=== PATIENT | female | born 1965 | race Caucasian/White ===

== ENCOUNTER 2016-12-15 19:46 | Emergency (ER) | payer OTHER ==
[~2016-12-15] VITALS: Ht 157.5 cm; Wt 52.9 kg
[~2016-12-15 19:46] MED LIST: FLEXERIL10 MG PO; INDOCIN25 MG PO; NAPROSYN500 MG PO; NORCO 7.5/321 TABLET PO; VALIUM5 MG PO; ZITHROMAX250 MG PO
[2016-12-15] MEDS ORDERED: METHADONE10 MG PO (20:31)
[2016-12-15 21:23] LABS: HEMATOCRIT 39.9 % (36.0-46.0); MCHC 35.1 G/DL (30.0-36.0); MCV 108.4 FL (83-99); MEAN PLAT.VOLUME 9.8 uM^3 (9.5-12.4); PLATELET COUNT 133 K/uL (156-360); RBC DIS.WIDTH-CV 13.6 % (11.8-14.6); RBC DIS.WIDTH-SD 55.5 % (39-53); RED BLOOD COUNT 3.68 M/uL (3.80-5.20)
[2016-12-15 21:32] LABS: CHLORIDE 96 mEq/L (99-109); POTASSIUM 4.8 mEq/L (3.7-5.4); SODIUM 136 mEq/L (136-147)
[2016-12-15 21:33] LABS: GLUCOSE 49 mg/dL (70-99)
[2016-12-15 21:35] LABS: ANION GAP 16 MEQ/L (2-14)
[2016-12-15 21:37] LABS: GFR ESTIMATE (CALCULATED) > 59 mL/min/
[2016-12-15 21:38] LABS: UREA NITROGEN (BUN) 11 mg/dL (9-23)
[2016-12-15 23:25] LABS: POINT-OF-CARE METER ID UU14100415
[2016-12-16 00:02] VITALS: BP 126/88
== END 2016-12-16 00:15 | disposition home or self-care (01) ==
LOC: EME → EDBD 19:46 → EME 19:46
PROVIDERS: Emergency Medicine
DX: E16.2 Hypoglycemia, unspecified (principal); E86.0 Dehydration; B34.9 Viral infection, unspecified; R11.2 Nausea with vomiting, unspecified; F17.200 Nicotine dependence, unspecified, uncomplicated
CPT/HCPCS: 80048; 82948; 85027; 99281; 99284; J2405; J7030